=== PATIENT | male | born 1990 | race Caucasian/White ===

== ENCOUNTER 2021-11-21 00:13 | Outpatient (CLI) | payer SELFPAY | END 2021-11-21 00:14 | disposition EMS.NT | LOC: EMS 00:13 | DX: S01.81XA Laceration without foreign body of other part of head, initial encounter (principal); V49.9XXA Car occupant (driver) (passenger) injured in unspecified traffic accident, initial encounter; Y92.413 State road as the place of occurrence of the external cause ==